=== PATIENT | male | born 1990 | race Hispanic/Latino ===

== ENCOUNTER 2017-01-21 17:18 | Emergency (ER) | payer SELFPAY ==
[~2017-01-21] VITALS: Ht 170.2 cm; Wt 77.0 kg
[2017-01-21 17:20] VITALS: BP 139/86
[2017-01-21] MEDS ORDERED: AFRIN,GENASAL D15 ML BOTH NARES (18:01)
== END 2017-01-21 18:10 | disposition home or self-care (01) ==
LOC: EME 17:18
DX: J30.2 Other seasonal allergic rhinitis (principal); G40.909 Epilepsy, unspecified, not intractable, without status epilepticus
CPT/HCPCS: 99281; 99283

== ENCOUNTER 2017-03-31 01:34 | Emergency (ER) | payer SELFPAY ==
[~2017-03-31] VITALS: Ht 172.7 cm; Wt 76.7 kg
[~2017-03-31 01:34] MED LIST: AFRIN,GENASAL D15 ML BOTH NARES
[2017-03-31] MEDS ORDERED: TRAMADOL HCL50 MG PO (03:51)
[2017-03-31] MEDS ORDERED: DOUBLE ANTIBI28.4 GM TP (03:51)
[2017-03-31 04:02] VITALS: BP 136/45
== END 2017-03-31 04:02 | disposition home or self-care (01) ==
LOC: EME 01:34
DX: B07.0 Plantar wart (principal)
CPT/HCPCS: 99281; 99284